=== PATIENT | male | born 1950 | race Caucasian/White ===

== ENCOUNTER → 2017-11-07 | Outpatient (CLI) | payer MEDICARE ==
[~2017-11-07] MED LIST: ALBU90OI6 INH; CIPR500 PO; CYAN1000I IM; CYCL10 PO; DIVA125EC; Imitrex50 MG PO; MAGCIT300 PO; METR500 PO; MIGRAINE MED; MULTIVITAMINS1 EACH; NAPR500 PO; PROM25 PO; SILD50TA PO; SUMA25 PO; TRAM50 PO; VITAMENS
== END ==
LOC: LAB SHORT 07:48 → PLD 07:48
DX: D48.5 Neoplasm of uncertain behavior of skin (principal)
CPT/HCPCS: 88305

== ENCOUNTER 2018-03-06 00:26 | Day surgery (SDC) | payer MEDICARE ==
[~2018-03-06 00:26] MED LIST changes: -CYAN1000I IM
[2018-03-06] MEDS ORDERED: CYAN1000I IM (08:58)
== END 2018-03-06 08:55 | disposition home or self-care (01) ==
LOC: ATC 00:26
DX: R53.83 Other fatigue (principal); H91.21 Sudden idiopathic hearing loss, right ear; R51 Headache
CPT/HCPCS: 36415; 80400; 82533; J0834

== ENCOUNTER 2018-08-29 10:44 | Day surgery (SDC) | payer MEDICARE ==
[~2018-08-29] VITALS: Ht 188 cm; Wt 78.3 kg
[~2018-08-29 10:44] MED LIST changes: +BACL10 PO; +CYAN1000I IM; +GRAPE SEED EXTR50 MG PO; +Imitrex100 MG PO; +PINE BARK EXTRACT PO
--- NOTE | 2018-08-29 13:06 | NUR ---
08/29/18 1306 Erasto Schulz LATE ENTRY-[id number] DR PINA IN ROOM AND SITE CHECK DONE. RIGHT SHOULDER BLOCK DONE AND PATIENT TOLERATED PROCEDURE WELL. VSS
== END 2018-08-29 15:46 | disposition home or self-care (01) ==
LOC: ORSCSDS 10:44
PROVIDERS: Orthopaedic Surgery
PROC: 0LS14ZZ Reposition Right Shoulder Tendon, Percutaneous Endoscopic Approach (ICD-10-PCS; principal; 2018-08-29 12:00)
PROC: 0LQ14ZZ Repair Right Shoulder Tendon, Percutaneous Endoscopic Approach (ICD-10-PCS; principal; 2018-08-29 12:00)
PROC: 0RNJ4ZZ Release Right Shoulder Joint, Percutaneous Endoscopic Approach (ICD-10-PCS; principal; 2018-08-29 12:00)
DX: M75.21 Bicipital tendinitis, right shoulder (principal); M75.51 Bursitis of right shoulder; S46.011A Strain of muscle(s) and tendon(s) of the rotator cuff of right shoulder, initial encounter; J45.909 Unspecified asthma, uncomplicated; Z79.899 Other long term (current) drug therapy
CPT/HCPCS: C1713; J0171; J0690; J1100; J2250; J2370; J2405; J2710; J2765; J3010; J7120

== ENCOUNTER → 2018-10-16 | Outpatient (CLI) | payer MEDICARE | END | disposition home or self-care (01) | LOC: PLD 11:35 → LAB SHORT 11:35 | DX: D04.5 Carcinoma in situ of skin of trunk (principal); L57.0 Actinic keratosis | CPT/HCPCS: 88305 ==

== ENCOUNTER → 2019-04-18 | Outpatient (CLI) | payer MEDICARE | END | disposition home or self-care (01) | LOC: LAB SHORT 10:04 → PLD 10:04 | DX: D36.10 Benign neoplasm of peripheral nerves and autonomic nervous system, unspecified (principal) | CPT/HCPCS: 88305 ==

== ENCOUNTER → 2019-05-28 | Outpatient (CLI) | payer MEDICARE | END | disposition home or self-care (01) | LOC: PLD 11:26 → LAB SHORT 11:26 | DX: D36.14 Benign neoplasm of peripheral nerves and autonomic nervous system of thorax (principal) | CPT/HCPCS: 88305 ==

== ENCOUNTER → 2019-08-16 | Outpatient (CLI) | payer MEDICARE | END | disposition home or self-care (01) | LOC: LAB SHORT 08:43 → PLD 08:43 | DX: R59.0 Localized enlarged lymph nodes (principal); D48.1 Neoplasm of uncertain behavior of connective and other soft tissue | CPT/HCPCS: 88173 ==

== ENCOUNTER → 2019-09-21 | Outpatient (CLI) | payer MEDICARE ==
[~2019-09-21] MED LIST changes: +CYAN500 PO; +Flecainide Acet50 MG PO; +METO25 PO
[2019-09-21 17:27] LABS: BASOPHILS ABSOLUTE AUTO 0.04 K/mm3 (0.00-0.23); BASOPHILS PERCENT AUTO 1 % (0-2); EOSINOPHILS ABSOLUTE AUTO 0.23 K/mm3 (0.00-0.68); EOSINOPHILS PERCENT AUTO 3 % (0-6); Hematocrit 42.1 % (37.0-53.0); Hemoglobin 14.1 g/dL (13.5-17.5); IMMATURE GRAN ABSOLUTE AUTO 0.02 K/mm3 (0.00-0.10); IMMATURE GRAN PERCENT AUTO 0 % (0-1); LYMPHOCYTES ABSOLUTE AUTO 1.58 K/mm3 (0.84-5.20); LYMPHOCYTES PERCENT AUTO 22 % (21-46); MONOCYTES ABSOLUTE AUTO 0.56 K/mm3 (0.16-1.47); MONOCYTES PERCENT AUTO 8 % (4-13); Mean Corpuscular HGB 30.2 pg (26.0-34.0); Mean Corpuscular HGB Conc 33.5 g/dL (31.5-36.5); Mean Corpuscular Volume 90 fL (80-100); Mean Platelet Volume 9.3 fL (9.1-12.4); NEUTROPHILS ABSOLUTE AUTO 4.87 K/mm3 (1.96-9.15); NEUTROPHILS PERCENT AUTO 67 % (41-73); Platelet Count 210 K/mm3 (150-400); RDW Coefficient Variation 13.2 % (11.7-14.2); RDW Standard Deviation 43.3 fL (35.1-46.3); Red Blood Cell Count 4.67 M/mm3 (4.30-5.90)
[2019-09-21 17:37] LABS: Alanine Aminotransfer (ALT/SGP 20 U/L (12-78); Albumin, Blood 3.7 g/dL (3.4-5.0); Albumin/Globulin Ratio 1.2 (0.8-1.8); Alk Phos 57 U/L (40-126); Anion Gap 3 mmol/L (6-16); Aspartate Aminotrans (AST/SGOT 20 U/L (12-37); Bilirubin, Total 1.5 mg/dL (0.1-1.0); Blood Urea Nitrogen 15 mg/dL (8-24); Bun/Creatinine Ratio 16.9 (12.0-20.0); CO2, Blood 33 mmol/L (21-32); Calcium, Blood 8.4 mg/dL (8.5-10.1); Chloride, Blood 99 mmol/L (98-108); Creatinine, Blood 0.89 mg/dL (0.60-1.20); Globulin, Blood 3.2 g/dL (2.2-4.0); Glomerular Filtration Rate >60 (60-); Glucose, Blood 102 mg/dL (70-99); Potassium, Blood 3.9 mmol/L (3.5-5.5); Sodium, Blood 135 mmol/L (136-145); Total Protein, Blood 6.9 g/dL (6.4-8.2)
== END | disposition home or self-care (01) ==
LOC: LAB SHORT 17:20 → LAB EV 17:20
PROVIDERS: Internal Medicine
DX: M62.81 Muscle weakness (generalized) (principal); R06.00 Dyspnea, unspecified
CPT/HCPCS: 80053; 85025; 85379

== ENCOUNTER 2019-09-26 13:51 | Day surgery (SDC) | payer MEDICARE ==
[~2019-09-26] VITALS: Ht 188 cm; Wt 83.2 kg
== END 2019-09-26 16:31 | disposition home or self-care (01) ==
LOC: ORSCSDS 13:51
PROVIDERS: Otolaryngology
PROC: 0CJS8ZZ Inspection of Larynx, Via Natural or Artificial Opening Endoscopic (ICD-10-PCS; principal; 2019-09-26 15:15)
DX: C77.0 Secondary and unspecified malignant neoplasm of lymph nodes of head, face and neck (principal); J45.909 Unspecified asthma, uncomplicated; Z79.899 Other long term (current) drug therapy
CPT/HCPCS: J0171; J0330; J1100; J2405; J3010; J7120

== ENCOUNTER → 2020-06-17 | Outpatient (CLI) | payer MEDICARE ==
[~2020-06-17] MED LIST changes: +Cialis2.5 MG PO
== END | disposition home or self-care (01) ==
LOC: LAB SHORT 10:58 → PLD 10:58
DX: D22.5 Melanocytic nevi of trunk (principal); L57.0 Actinic keratosis
CPT/HCPCS: 88305

== ENCOUNTER 2020-09-16 06:50 | Day surgery (SDC) | payer MEDICARE ==
[~2020-09-16] VITALS: Ht 188 cm; Wt 84.8 kg
--- NOTE | 2020-09-16 07:26 | NUR ---
09/16/20 0726 Collin Altman CALL LIGHT WITHIN REACH
== END 2020-09-16 09:12 | disposition home or self-care (01) ==
LOC: ORSCSDS 06:50
PROVIDERS: Ophthalmology
PROC: 08RJ3JZ Replacement of Right Lens with Synthetic Substitute, Percutaneous Approach (ICD-10-PCS; principal; 2020-09-16 08:00)
DX: H25.11 Age-related nuclear cataract, right eye (principal); Z79.899 Other long term (current) drug therapy
CPT/HCPCS: J2001; J2250; J3010; J3301; J7040; V2632

== ENCOUNTER 2020-10-14 07:11 | Day surgery (SDC) | payer MEDICARE ==
[~2020-10-14] VITALS: Ht 188 cm; Wt 86.1 kg
--- NOTE | 2020-10-14 07:26 | NUR ---
10/14/20 0726 GLADYS RAMIREZ TETRACAINE GTT PLACED AT 0724, PLEDGET PLACED PER DR ELIAS'S ORDER AT 0773
== END 2020-10-14 09:35 | disposition home or self-care (01) ==
LOC: ORSCSDS 07:11
PROVIDERS: Ophthalmology
PROC: 08RK3JZ Replacement of Left Lens with Synthetic Substitute, Percutaneous Approach (ICD-10-PCS; principal; 2020-10-14 08:30)
DX: H25.12 Age-related nuclear cataract, left eye (principal); J45.909 Unspecified asthma, uncomplicated; Z79.899 Other long term (current) drug therapy
CPT/HCPCS: A9270; J2001; J2250; J3010; J3301; J7040; V2632

== ENCOUNTER 2021-03-11 01:16 | Day surgery (SDC) | payer MEDICARE ==
[~2021-03-11] VITALS: Wt 83.1 kg
== END 2021-03-11 10:02 | disposition home or self-care (01) ==
LOC: ATC 01:16
DX: E27.40 Unspecified adrenocortical insufficiency (principal); E78.2 Mixed hyperlipidemia; I65.23 Occlusion and stenosis of bilateral carotid arteries; R10.32 Left lower quadrant pain; R53.83 Other fatigue; J45.909 Unspecified asthma, uncomplicated; C76.0 Malignant neoplasm of head, face and neck; C77.0 Secondary and unspecified malignant neoplasm of lymph nodes of head, face and neck; I47.1 Supraventricular tachycardia; C61 Malignant neoplasm of prostate; Z85.038 Personal history of other malignant neoplasm of large intestine; Z88.1 Allergy status to other antibiotic agents; Z88.8 Allergy status to other drugs, medicaments and biological substances; Z88.5 Allergy status to narcotic agent; Z79.899 Other long term (current) drug therapy
CPT/HCPCS: 36415; 80400; 82533; 96372; J0834

== ENCOUNTER → 2021-12-02 | Outpatient (CLI) | payer OTHER ==
[2021-12-02 16:34] LABS: BASOPHILS ABSOLUTE AUTO 0.04 K/mm3 (0.00-0.23); BASOPHILS PERCENT AUTO 0 % (0-2); EOSINOPHILS ABSOLUTE AUTO 0.02 K/mm3 (0.00-0.68); EOSINOPHILS PERCENT AUTO 0 % (0-6); Hematocrit 47.2 % (37.0-53.0); Hemoglobin 15.8 g/dL (13.5-17.5); IMMATURE GRAN ABSOLUTE AUTO 0.07 K/mm3 (0.00-0.10); IMMATURE GRAN PERCENT AUTO 1 % (0-1); LYMPHOCYTES ABSOLUTE AUTO 0.36 K/mm3 (0.84-5.20); LYMPHOCYTES PERCENT AUTO 3 % (21-46); MONOCYTES PERCENT AUTO 6 % (4-13); Mean Corpuscular HGB 29.9 pg (26.0-34.0); Mean Corpuscular HGB Conc 33.5 g/dL (31.5-36.5); Mean Corpuscular Volume 89 fL (80-100); Mean Platelet Volume 8.6 fL (9.1-12.4); NEUTROPHILS ABSOLUTE AUTO 12.52 K/mm3 (1.96-9.15); NEUTROPHILS PERCENT AUTO 91 % (41-73); Platelet Count 246 K/mm3 (150-400); RDW Coefficient Variation 13.8 % (11.7-14.2); RDW Standard Deviation 44.7 fL (35.1-46.3); Red Blood Cell Count 5.29 M/mm3 (4.30-5.90); White Blood Cell Count 13.81 K/mm3 (4.00-11.30)
[2021-12-02 16:44] LABS: Alanine Aminotransfer (ALT/SGP 42 U/L (12-78); Albumin, Blood 3.9 g/dL (3.4-5.0); Albumin/Globulin Ratio 1.3 (0.8-1.8); Alk Phos 62 U/L (40-126); Anion Gap 8 mmol/L (6-16); Aspartate Aminotrans (AST/SGOT 36 U/L (12-37); Bilirubin, Total 3.3 mg/dL (0.1-1.0); Blood Urea Nitrogen 15 mg/dL (8-24); Bun/Creatinine Ratio 15.5 (12.0-20.0); CO2, Blood 30 mmol/L (21-32); Calcium, Blood 8.8 mg/dL (8.5-10.1); Chloride, Blood 97 mmol/L (98-108); Creatinine, Blood 0.97 mg/dL (0.60-1.20); Globulin, Blood 3.1 g/dL (2.2-4.0); Glomerular Filtration Rate >60 (60-); Glucose, Blood 115 mg/dL (70-99); Potassium, Blood 3.7 mmol/L (3.5-5.5); Sodium, Blood 135 mmol/L (136-145); Uric Acid, Blood 3.4 mg/dL (3.5-7.2)
[2021-12-02 16:58] LABS: Bilirubin, Direct 0.3 mg/dL (0.0-0.3)
== END | disposition home or self-care (01) ==
LOC: LAB SHORT 16:29
PROVIDERS: Physician Assistant
DX: M79.605 Pain in left leg (principal); R60.0 Localized edema; E80.6 Other disorders of bilirubin metabolism
CPT/HCPCS: 80053; 82247; 82248; 84550; 85025

== ENCOUNTER → 2021-12-03 | Outpatient (CLI) | payer OTHER ==
[~2021-12-03] MED LIST changes: +CEPH500 PO; +Cleocin HCl150 MG PO; +LACT PO
[2021-12-03 10:55] LABS: BASOPHILS ABSOLUTE AUTO 0.06 K/mm3 (0.00-0.23); BASOPHILS PERCENT AUTO 0 % (0-2); EOSINOPHILS ABSOLUTE AUTO 0.02 K/mm3 (0.00-0.68); EOSINOPHILS PERCENT AUTO 0 % (0-6); Hematocrit 38.4 % (37.0-53.0); Hemoglobin 13.3 g/dL (13.5-17.5); IMMATURE GRAN ABSOLUTE AUTO 0.13 K/mm3 (0.00-0.10); IMMATURE GRAN PERCENT AUTO 1 % (0-1); LYMPHOCYTES ABSOLUTE AUTO 0.64 K/mm3 (0.84-5.20); LYMPHOCYTES PERCENT AUTO 4 % (21-46); MONOCYTES ABSOLUTE AUTO 0.41 K/mm3 (0.16-1.47); MONOCYTES PERCENT AUTO 3 % (4-13); Mean Corpuscular HGB 30.4 pg (26.0-34.0); Mean Corpuscular HGB Conc 34.6 g/dL (31.5-36.5); Mean Corpuscular Volume 88 fL (80-100); Mean Platelet Volume 9.1 fL (9.1-12.4); NEUTROPHILS ABSOLUTE AUTO 14.87 K/mm3 (1.96-9.15); NEUTROPHILS PERCENT AUTO 92 % (41-73); Platelet Count 218 K/mm3 (150-400); RDW Coefficient Variation 13.9 % (11.7-14.2); RDW Standard Deviation 44.8 fL (35.1-46.3); Red Blood Cell Count 4.37 M/mm3 (4.30-5.90); White Blood Cell Count 16.13 K/mm3 (4.00-11.30)
== END | disposition home or self-care (01) ==
LOC: LAB SHORT 10:50 → LAB 10:50
PROVIDERS: Physician Assistant
DX: L03.116 Cellulitis of left lower limb (principal)
CPT/HCPCS: 85025

== ENCOUNTER 2021-12-04 17:49 | Inpatient (IN) | payer OTHER ==
[~2021-12-04] VITALS: Ht 188 cm; Wt 88.3 kg
[~2021-12-04 17:49] MED LIST changes: -CEPH500 PO; -Cleocin HCl150 MG PO; -LACT PO
[2021-12-04 18:33] LABS: BASOPHILS ABSOLUTE AUTO 0.04 K/mm3 (0.00-0.23); BASOPHILS PERCENT AUTO 1 % (0-2); EOSINOPHILS PERCENT AUTO 3 % (0-6); Hematocrit 42.9 % (37.0-53.0); Hemoglobin 14.2 g/dL (13.5-17.5); IMMATURE GRAN ABSOLUTE AUTO 0.02 K/mm3 (0.00-0.10); IMMATURE GRAN PERCENT AUTO 0 % (0-1); LYMPHOCYTES ABSOLUTE AUTO 1.07 K/mm3 (0.84-5.20); LYMPHOCYTES PERCENT AUTO 13 % (21-46); MONOCYTES PERCENT AUTO 9 % (4-13); Mean Corpuscular HGB 29.4 pg (26.0-34.0); Mean Corpuscular HGB Conc 33.1 g/dL (31.5-36.5); Mean Corpuscular Volume 89 fL (80-100); Mean Platelet Volume 9.6 fL (9.1-12.4); NEUTROPHILS ABSOLUTE AUTO 5.97 K/mm3 (1.96-9.15); NEUTROPHILS PERCENT AUTO 75 % (41-73); Platelet Count 234 K/mm3 (150-400); RDW Coefficient Variation 13.7 % (11.7-14.2); RDW Standard Deviation 44.8 fL (35.1-46.3); Red Blood Cell Count 4.83 M/mm3 (4.30-5.90)
[2021-12-04 19:21] LABS: Alanine Aminotransfer (ALT/SGP 29 U/L (12-78); Albumin, Blood 3.4 g/dL (3.4-5.0); Alk Phos 59 U/L (50-136); Anion Gap 6 mmol/L (6-16); Aspartate Aminotrans (AST/SGOT 22 U/L (12-37); Bilirubin, Total 0.8 mg/dL (0.1-1.0); Blood Urea Nitrogen 12 mg/dL (8-24); Bun/Creatinine Ratio 12.3 (12.0-20.0); CO2, Blood 29 mmol/L (21-32); Calcium, Blood 8.8 mg/dL (8.5-10.1); Chloride, Blood 97 mmol/L (98-108); Creatinine, Blood 0.98 mg/dL (0.60-1.20); Globulin, Blood 3.3 g/dL (2.2-4.0); Glomerular Filtration Rate >60 (60-); Glucose, Blood 91 mg/dL (70-99); Potassium, Blood 3.8 mmol/L (3.5-5.5); Sodium, Blood 132 mmol/L (136-145); Total Protein, Blood 6.7 g/dL (6.4-8.2)
[2021-12-05 05:20] LABS: Hematocrit 41.2 % (37.0-53.0); Hemoglobin 13.7 g/dL (13.5-17.5); Mean Corpuscular HGB 29.1 pg (26.0-34.0); Mean Corpuscular HGB Conc 33.3 g/dL (31.5-36.5); Mean Corpuscular Volume 88 fL (80-100); Mean Platelet Volume 9.7 fL (9.1-12.4); Platelet Count 225 K/mm3 (150-400); RDW Coefficient Variation 13.6 % (11.7-14.2); RDW Standard Deviation 44.2 fL (35.1-46.3); White Blood Cell Count 5.73 K/mm3 (4.00-11.30)
[2021-12-05 06:05] LABS: Anion Gap 8 mmol/L (6-16); Blood Urea Nitrogen 12 mg/dL (8-24); Bun/Creatinine Ratio 14.5 (12.0-20.0); CO2, Blood 26 mmol/L (21-32); Calcium, Blood 8.6 mg/dL (8.5-10.1); Chloride, Blood 100 mmol/L (98-108); Creatinine, Blood 0.83 mg/dL (0.60-1.20); Glomerular Filtration Rate >60 (60-); Glucose, Blood 78 mg/dL (70-99); Potassium, Blood 3.7 mmol/L (3.5-5.5); Sodium, Blood 134 mmol/L (136-145)
--- NOTE | 2021-12-05 07:55 | NUR ---
0031: PT ARRIVED IN THE UNIT VIA WHEELCHAIR, TRANSFERS INDEPENDENTLY FROM CHAIR TO BED. PT REPORTS MILD LLE PAIN DUE TO CELLULITIS. LLE IS RED, SWOLLEN AND WARM. VSS. PT DENIES ANY CHEST PAIN AND SOB. TELE IN PLACE DUE TO H/O SVT. PT ALSO DENIES NUMBNESS AND TINGLING SENSATION. AOX4. CALL APPROPRIATE WITH THE USE OF CALL LIGHT. REPORT GIVEN TO DAY SHIFT NURSE.
--- NOTE | 2021-12-05 07:57 | NUR ---
PT REPORTS SOME INCREASING (MODERATE) PAIN WITH LLE. PAIN MANAGED WITH TYLENOL AND TORADOL WITH RELIEF. AMBULATES IN THE BATHROOM INDEPENDENTLY. VOIDS WITHOUT ISSUE. PLAN FOR ABX TX. CALL LIGHT WITHIN REACH.
--- NOTE | 2021-12-05 16:27 | NUR ---
SHIFT SUMMARY MR HUMPHRIES IS ORIENTATED X 4. REDNESS AND SWELLING TO LEFT LEG LOOKS LIKE IT HAS LESSENED THROUGHOUT THE DAY. SWOLLEN, TIGHT RED SKIN UP TO HIS KNEE, REDNESS HAS IN THE ERWIN/CALF AREA. REDNESS TO INNER THIGH PERSISTS, THIS AREA DOESN'T LOOK SWOLLEN. HAS PIV IN PLACE AND RECEIVING IV ABX. HAD CT OF LLE THIS AFTERNOON. TELEMETRY DISCONTINUED AROUND 1330HRS. NO CP/SOB. ABLE TO WEIGHT BEAR, UP TO BR INDEPENDENTLY. LOW CONSISTANT PAIN TO LLE, MEDICATIONS PER MAR. BED LOW, CALL LIGHT IN REACH.
--- NOTE | 2021-12-06 05:15 | NUR ---
SUMMARY PT SLEPT WELL T/O THE NIGHT. MEDICATED ONE FOR PAIN, PER EMAR. NO NEW SWELLING, REDDNESS, OR TENDERNESS NOTED. NO ACUTE CHANGES NOTED. WCTM.
[2021-12-06 05:56] LABS: BASOPHILS ABSOLUTE AUTO 0.04 K/mm3 (0.00-0.23); BASOPHILS PERCENT AUTO 1 % (0-2); EOSINOPHILS ABSOLUTE AUTO 0.38 K/mm3 (0.00-0.68); EOSINOPHILS PERCENT AUTO 8 % (0-6); Hematocrit 40.3 % (37.0-53.0); Hemoglobin 13.3 g/dL (13.5-17.5); IMMATURE GRAN ABSOLUTE AUTO 0.02 K/mm3 (0.00-0.10); IMMATURE GRAN PERCENT AUTO 0 % (0-1); LYMPHOCYTES ABSOLUTE AUTO 0.68 K/mm3 (0.84-5.20); LYMPHOCYTES PERCENT AUTO 15 % (21-46); MONOCYTES PERCENT AUTO 13 % (4-13); Mean Corpuscular HGB 29.2 pg (26.0-34.0); Mean Corpuscular Volume 89 fL (80-100); Mean Platelet Volume 9.7 fL (9.1-12.4); NEUTROPHILS ABSOLUTE AUTO 2.89 K/mm3 (1.96-9.15); NEUTROPHILS PERCENT AUTO 63 % (41-73); Platelet Count 235 K/mm3 (150-400); RDW Coefficient Variation 13.7 % (11.7-14.2); RDW Standard Deviation 44.7 fL (35.1-46.3); Red Blood Cell Count 4.55 M/mm3 (4.30-5.90); White Blood Cell Count 4.61 K/mm3 (4.00-11.30)
[2021-12-06 06:30] LABS: Anion Gap 4 mmol/L (6-16); Blood Urea Nitrogen 12 mg/dL (8-24); Bun/Creatinine Ratio 13.5 (12.0-20.0); CO2, Blood 29 mmol/L (21-32); Calcium, Blood 8.5 mg/dL (8.5-10.1); Chloride, Blood 99 mmol/L (98-108); Creatinine, Blood 0.89 mg/dL (0.60-1.20); Glomerular Filtration Rate >60 (60-); Glucose, Blood 87 mg/dL (70-99); Sodium, Blood 132 mmol/L (136-145)
--- NOTE | 2021-12-06 16:09 | NUR ---
PATIENT IS ALERT AND ORIENTED X4, PLEASANT AND COOPERATIVE WITH CARE. PATIENT IS INDEPENDENT IN ROOM. ABX GIVEN. MEDICATED FOR PAIN X2 PER MAR. SWELLING AND REDNESS IN LEFT LOWER EXTREMITY HAS IMPROVED. NO DISTRESS AT THIS TIME. SPOUSE AT BEDSIDE. CALL LIGHT WITHIN REACH. BED IN LOWEST POSITION.
[2021-12-07 05:56] LABS: BASOPHILS ABSOLUTE AUTO 0.06 K/mm3 (0.00-0.23); BASOPHILS PERCENT AUTO 2 % (0-2); EOSINOPHILS ABSOLUTE AUTO 0.41 K/mm3 (0.00-0.68); EOSINOPHILS PERCENT AUTO 11 % (0-6); Hematocrit 40.5 % (37.0-53.0); Hemoglobin 13.7 g/dL (13.5-17.5); IMMATURE GRAN ABSOLUTE AUTO 0.02 K/mm3 (0.00-0.10); IMMATURE GRAN PERCENT AUTO 1 % (0-1); LYMPHOCYTES ABSOLUTE AUTO 0.98 K/mm3 (0.84-5.20); LYMPHOCYTES PERCENT AUTO 26 % (21-46); MONOCYTES ABSOLUTE AUTO 0.64 K/mm3 (0.16-1.47); MONOCYTES PERCENT AUTO 17 % (4-13); Mean Corpuscular HGB 29.5 pg (26.0-34.0); Mean Corpuscular HGB Conc 33.8 g/dL (31.5-36.5); Mean Corpuscular Volume 87 fL (80-100); Mean Platelet Volume 9.4 fL (9.1-12.4); NEUTROPHILS ABSOLUTE AUTO 1.62 K/mm3 (1.96-9.15); NEUTROPHILS PERCENT AUTO 43 % (41-73); Platelet Count 242 K/mm3 (150-400); RDW Coefficient Variation 13.3 % (11.7-14.2); RDW Standard Deviation 42.8 fL (35.1-46.3); Red Blood Cell Count 4.64 M/mm3 (4.30-5.90); White Blood Cell Count 3.73 K/mm3 (4.00-11.30)
--- NOTE | 2021-12-07 05:59 | NUR ---
SHIFT SUMMARY NO ACUTE CHANGES OVERNIGHT. PT'S LLE CELLULITIS APPEARS TO BE IMRPOVING. IV ABX ADMINISTERED. PT REPORTS MINIMAL PAIN. PAIN MANAGED WITH TYLENOL AND TORADOL. TOLERATING PO, DENIES N/V. VSS. DENIES CP AND SOB. AMBULATES INDEPENDENTLY IN ROOM. CALL LIGHT WITHIN REACH. WILL PROVIDE REPORT TO ONCOMING NURSE.
[2021-12-07 06:20] LABS: Anion Gap 7 mmol/L (6-16); Blood Urea Nitrogen 11 mg/dL (8-24); Bun/Creatinine Ratio 15.1 (12.0-20.0); CO2, Blood 26 mmol/L (21-32); Calcium, Blood 8.6 mg/dL (8.5-10.1); Chloride, Blood 96 mmol/L (98-108); Creatinine, Blood 0.73 mg/dL (0.60-1.20); Glomerular Filtration Rate >60 (60-); Glucose, Blood 92 mg/dL (70-99); Potassium, Blood 3.8 mmol/L (3.5-5.5); Sodium, Blood 129 mmol/L (136-145)
[2021-12-07] MEDS ORDERED: LACT PO (14:41)
[2021-12-07] MEDS ORDERED: CEPH500 PO (14:42)
[2021-12-07] MEDS ORDERED: Cleocin HCl150 MG PO (14:43)
--- NOTE | 2021-12-07 14:57 | NUR ---
PT IS A&O, PLEASANT AND CO-OP. UP INDEPENDENTLY TO BTHRM AND WALKING IN . DR JARQUIN AND DR PHILLIP BOTH IN TO SEE PT AND DISCUSS PLAN OF CARE. PT WANTING TO GO HOME. PO ABX'S ORDERED AND DISCUSSED WITH PT TO TAKE AT D/C. DISCHARGE ORDERS PLACED. MEDS FAXED TO [facility] PER PT REQUEST. D/C INSTRUCTIONS REVIEWED WITH PT. IV SITE D/C'D WNL'S. PT TO BE ASSISTED OUT TO 'S CAR, VIA W/C, WHEN SHE ARRIVES.
== END 2021-12-07 15:36 | disposition home or self-care (01) | DRG 603 ==
LOC: ER 17:49 → MEDS 12-05 00:36
PROVIDERS: Emergency Medicine; Family Medicine; Student in an Organized Health Care Education/Training Program; ADMIT Internal Medicine
DX: L03.116 Cellulitis of left lower limb (principal); E87.1 Hypo-osmolality and hyponatremia; R07.89 Other chest pain; G43.909 Migraine, unspecified, not intractable, without status migrainosus; Z88.1 Allergy status to other antibiotic agents; Z88.5 Allergy status to narcotic agent; Z88.8 Allergy status to other drugs, medicaments and biological substances; Z79.899 Other long term (current) drug therapy; Z90.49 Acquired absence of other specified parts of digestive tract; Z90.89 Acquired absence of other organs; Z98.890 Other specified postprocedural states
CPT/HCPCS: 36415; 71045; 73701; 80048; 80053; 84484; 85025; 85027; 87040; 93005; 93010; 93971; 96365; 96375; 97165; 97530; 99285-25; A9270; J0690; J1650; J1885; J7040; Q9967

== ENCOUNTER → 2022-01-26 | Outpatient (CLI) | payer OTHER ==
[~2022-01-26] MED LIST changes: +CEPH500 PO; +Cleocin HCl150 MG PO; +LACT PO
== END | disposition home or self-care (01) ==
LOC: LAB SHORT 17:02 → LAB 17:02
DX: L02.511 Cutaneous abscess of right hand (principal); L03.011 Cellulitis of right finger
CPT/HCPCS: 87070; 87077; 87147; 87186; 87205

== ENCOUNTER → 2022-11-02 | Outpatient (CLI) | payer OTHER ==
[2022-11-02 17:15] LABS: Source, Urine Clean Catch
[2022-11-02 18:49] LABS: Appearance, Urine Clear (Clear); Bilirubin, Urine Neg (Neg); Blood, Urine Neg (Neg); Glucose Qualitative, Urine Neg (Neg); Ketones, Urine Neg (Neg); Leukocyte Esterase, Urine Neg (Neg); Nitrite, Urine Neg (Neg); Protein, Urine Neg (Neg); Urobilinogen, Urine NORM (Normal); pH, Urine 6.5 (5.0-8.0)
[2022-11-02 19:00] LABS: Color, Urine Pale Yellow (P-Yellow)
== END | disposition home or self-care (01) ==
LOC: LAB SHORT 17:12 → LAB 17:12
PROVIDERS: Internal Medicine
DX: R31.9 Hematuria, unspecified (principal)
CPT/HCPCS: 81003

== ENCOUNTER → 2023-09-30 | Outpatient (CLI) | payer OTHER ==
[2023-09-30 17:34] LABS: BASOPHILS ABSOLUTE AUTO 0.05 K/mm3 (0.00-0.23); BASOPHILS PERCENT AUTO 1 % (0-2); EOSINOPHILS ABSOLUTE AUTO 0.17 K/mm3 (0.00-0.68); EOSINOPHILS PERCENT AUTO 5 % (0-6); Hematocrit 47.8 % (37.0-53.0); Hemoglobin 15.8 g/dL (13.5-17.5); IMMATURE GRAN PERCENT AUTO 0 % (0-1); LYMPHOCYTES ABSOLUTE AUTO 1.06 K/mm3 (0.84-5.20); LYMPHOCYTES PERCENT AUTO 28 % (21-46); MONOCYTES ABSOLUTE AUTO 0.33 K/mm3 (0.16-1.47); MONOCYTES PERCENT AUTO 9 % (4-13); Mean Corpuscular HGB 29.3 pg (26.0-34.0); Mean Corpuscular HGB Conc 33.1 g/dL (31.5-36.5); Mean Corpuscular Volume 89 fL (80-100); Mean Platelet Volume 9.3 fL (9.1-12.4); NEUTROPHILS ABSOLUTE AUTO 2.13 K/mm3 (1.96-9.15); NEUTROPHILS PERCENT AUTO 57 % (41-73); Platelet Count 281 K/mm3 (150-400); RDW Coefficient Variation 13.6 % (11.7-14.2); RDW Standard Deviation 44.3 fL (35.1-46.3); Red Blood Cell Count 5.39 M/mm3 (4.30-5.90); White Blood Cell Count 3.74 K/mm3 (4.00-11.30)
[2023-09-30 18:29] LABS: Alanine Aminotransfer (ALT/SGP 22 U/L (12-78); Albumin, Blood 3.6 g/dL (3.4-5.0); Albumin/Globulin Ratio 1.1 (0.8-1.8); Alk Phos 59 U/L (50-136); Anion Gap 2 mmol/L (6-16); Aspartate Aminotrans (AST/SGOT 20 U/L (12-37); Bilirubin, Total 1.8 mg/dL (0.1-1.0); Blood Urea Nitrogen 13 mg/dL (8-24); Bun/Creatinine Ratio 17.5 (12.0-20.0); CHOL/HDL RATIO 2.9; CO2, Blood 30 mmol/L (21-32); Chloride, Blood 101 mmol/L (98-108); Cholesterol 176 mg/dL (50-200); Creatinine, Blood 0.74 mg/dL (0.60-1.20); Ferritin, Serum 47 ng/mL (26-388); Globulin, Blood 3.2 g/dL (2.2-4.0); Glomerular Filtration Rate 94 (60-); Glucose, Blood 82 mg/dL (70-99); HDL Cholesterol 61 mg/dL (>39); Iron Serum 106 ug/dL (65-175); LDL/HDL RATIO 1.7; Low Density Lipoprotein Chol 106 mg/dL (0-110); Percent Saturation 34.3 % (20.0-50.0); Potassium, Blood 3.9 mmol/L (3.5-5.5); Prostate Specific Antigen <0.010 ng/mL (0.000-4.000); Sodium, Blood 133 mmol/L (136-145); Total Iron Binding Capacity 309 ug/dL (250-450); Total Protein, Blood 6.8 g/dL (6.4-8.2); Triglycerides 43 mg/dL (30-160); Very Low Density Lipoprot Chol 8 mg/dL (6-32)
== END | disposition home or self-care (01) ==
LOC: LAB 15:17 → LAB SHORT 15:17
PROVIDERS: Internal Medicine
DX: C61 Malignant neoplasm of prostate (principal); E78.2 Mixed hyperlipidemia; E61.1 Iron deficiency; R47.02 Dysphasia
CPT/HCPCS: 80053; 80061; 82728; 83540; 83550; 84153; 85025

== ENCOUNTER → 2023-12-03 | Outpatient (CLI) | payer OTHER ==
[2023-12-03 16:17] LABS: Hematocrit 40.5 % (37.0-53.0); Hemoglobin 14.1 g/dL (13.5-17.5); Mean Corpuscular HGB Conc 34.8 g/dL (31.5-36.5); Mean Corpuscular Volume 86 fL (80-100); Mean Platelet Volume 8.7 fL (9.1-12.4); Platelet Count 212 K/mm3 (150-400); RDW Coefficient Variation 13.2 % (11.7-14.2); RDW Standard Deviation 41.5 fL (35.1-46.3); White Blood Cell Count 4.96 K/mm3 (4.00-11.30)
[2023-12-03 16:33] LABS: Albumin, Blood 3.1 g/dL (3.4-5.0); Albumin/Globulin Ratio 0.9 (0.8-1.8); Bun/Creatinine Ratio 12.9 (12.0-20.0); Calcium, Blood 8.6 mg/dL (8.5-10.1); Creatinine, Blood 0.85 mg/dL (0.60-1.20); Globulin, Blood 3.6 g/dL (2.2-4.0); Potassium, Blood 3.8 mmol/L (3.5-5.5); Total Protein, Blood 6.7 g/dL (6.4-8.2)
[2023-12-03 16:37] LABS: BAND PERCENT MAN 19 % (0-8); BASOPHILS ABSOLUTE MAN 0.09 K/mm3 (0.00-0.23); BASOPHILS PERCENT MAN 2 % (0-2); EOSINOPHILS ABSOLUTE MAN 0.14 K/mm3 (0.00-0.68); EOSINOPHILS PERCENT MAN 3 % (0-6); LYMPHOCYTES ABSOLUTE MAN 1.24 K/mm3 (0.84-5.20); LYMPHOCYTES PERCENT MAN 25 % (21-46); MONOCYTES ABSOLUTE MAN 0.79 K/mm3 (0.16-1.47); MONOCYTES PERCENT MAN 16 % (4-13); NEUTROPHILS ABSOLUTE MAN 2.67 K/mm3 (1.96-9.15); SEG NEUTROPHILS PERCENT MAN 35 % (41-73)
== END | disposition home or self-care (01) ==
LOC: LAB 16:13 → LAB SHORT 16:13
PROVIDERS: Physician Assistant
DX: R10.9 Unspecified abdominal pain (principal); R53.83 Other fatigue
CPT/HCPCS: 80053; 83690; 85025

== ENCOUNTER 2023-12-17 22:22 | Emergency (ER) | payer OTHER ==
[~2023-12-17] VITALS: Ht 188 cm; Wt 77.1 kg
[2023-12-17 23:00] LABS: BASOPHILS ABSOLUTE AUTO 0.06 K/mm3 (0.00-0.23); BASOPHILS PERCENT AUTO 1 % (0-2); EOSINOPHILS ABSOLUTE AUTO 0.14 K/mm3 (0.00-0.68); EOSINOPHILS PERCENT AUTO 3 % (0-6); Hematocrit 44.6 % (37.0-53.0); Hemoglobin 14.9 g/dL (13.5-17.5); IMMATURE GRAN ABSOLUTE AUTO 0.01 K/mm3 (0.00-0.10); IMMATURE GRAN PERCENT AUTO 0 % (0-1); LYMPHOCYTES ABSOLUTE AUTO 1.25 K/mm3 (0.84-5.20); LYMPHOCYTES PERCENT AUTO 24 % (21-46); MONOCYTES ABSOLUTE AUTO 0.54 K/mm3 (0.16-1.47); MONOCYTES PERCENT AUTO 10 % (4-13); Mean Corpuscular HGB 29.3 pg (26.0-34.0); Mean Corpuscular HGB Conc 33.4 g/dL (31.5-36.5); Mean Corpuscular Volume 88 fL (80-100); Mean Platelet Volume 8.3 fL (9.1-12.4); NEUTROPHILS ABSOLUTE AUTO 3.25 K/mm3 (1.96-9.15); NEUTROPHILS PERCENT AUTO 62 % (41-73); Platelet Count 426 K/mm3 (150-400); RDW Coefficient Variation 13.2 % (11.7-14.2); RDW Standard Deviation 43.1 fL (35.1-46.3); Red Blood Cell Count 5.08 M/mm3 (4.30-5.90); White Blood Cell Count 5.25 K/mm3 (4.00-11.30)
[2023-12-17 23:18] LABS: Albumin, Blood 3.4 g/dL (3.4-5.0); Albumin/Globulin Ratio 0.9 (0.8-1.8); Bilirubin, Total 0.8 mg/dL (0.1-1.0); Bun/Creatinine Ratio 25.9 (12.0-20.0); Calcium, Blood 9.6 mg/dL (8.5-10.1); Creatinine, Blood 0.7 mg/dL (0.60-1.20); Globulin, Blood 3.7 g/dL (2.2-4.0); Potassium, Blood 4.4 mmol/L (3.5-5.5); Total Protein, Blood 7.1 g/dL (6.4-8.2)
[2023-12-18 02:04] LABS: Source, Urine Clean Catch
[2023-12-18 02:15] LABS: Appearance, Urine Clear (Clear); Bilirubin, Urine Neg (Neg); Blood, Urine Neg (Neg); Color, Urine Yellow (P-Yellow); Glucose Qualitative, Urine Neg (Neg); Ketones, Urine Neg (Neg); Leukocyte Esterase, Urine Neg (Neg); Nitrite, Urine Neg (Neg); Protein, Urine Neg (Neg); Urobilinogen, Urine NORM (Normal)
[2023-12-18] MEDS ORDERED: Lidocaine 4% 1 Patch TOP ONE (03:20)
[2023-12-18] MEDS ORDERED: Ketorolac Tromethamine 30mg Vial IV ONE (03:20)
[2023-12-18] MEDS ORDERED: Cyclobenzaprine HCl 10 MG Tab PO ONE (03:20)
[2023-12-18] MEDS ORDERED: Acetaminophen 325 MG TABLET PO ONE (03:20)
[2023-12-18] MEDS ORDERED: LIDO700A20 TOP (07:01)
[2023-12-18 07:28] VITALS: BP 144/82
== END 2023-12-18 07:31 | disposition home or self-care (01) ==
LOC: ER 22:22
PROVIDERS: Physician Assistant
DX: S16.1XXA Strain of muscle, fascia and tendon at neck level, initial encounter (principal); X50.1XXA Overexertion from prolonged static or awkward postures, initial encounter; Z88.1 Allergy status to other antibiotic agents; Z88.5 Allergy status to narcotic agent; Z88.8 Allergy status to other drugs, medicaments and biological substances; Z79.2 Long term (current) use of antibiotics; Z79.899 Other long term (current) drug therapy
CPT/HCPCS: 70491; 80053; 81003; 85025; 93005; 93010; 96374-59; 99284-25; A9270; J1885; Q9967

== ENCOUNTER 2024-03-06 07:31 | Day surgery (SDC) | payer OTHER ==
[~2024-03-06] VITALS: Ht 157.5 cm; Wt 78.8 kg
[~2024-03-06 07:31] MED LIST changes: +LIDO700A20 TOP; +Lactated Ringer's 1,000 ML IV ONE; +propofoL 50 ML IV ONE
[2024-03-06] MEDS ORDERED: NAPR500EC (08:14)
[2024-03-06] MEDS ORDERED: Lactated Ringer's 1,000 ML IV ONE (08:45)
[2024-03-06 11:58] VITALS: BP 126/72
== END 2024-03-06 10:00 | disposition home or self-care (01) ==
LOC: ORSCSDS 07:31
PROVIDERS: Surgery
PROC: 0DBE8ZX Excision of Large Intestine, Via Natural or Artificial Opening Endoscopic, Diagnostic (ICD-10-PCS; principal; 2024-03-06 08:45)
DX: R19.4 Change in bowel habit (principal); K57.30 Diverticulosis of large intestine without perforation or abscess without bleeding; Z85.038 Personal history of other malignant neoplasm of large intestine; J45.909 Unspecified asthma, uncomplicated; Z85.46 Personal history of malignant neoplasm of prostate; Z79.899 Other long term (current) drug therapy
CPT/HCPCS: 88305; J2704; J7120